=== PATIENT | female | born 1965 | race Caucasian/White ===

== ENCOUNTER 2018-07-18 12:00 | Emergency (ER) | payer OTHER ==
[~2018-07-18] VITALS: Ht 154.9 cm; Wt 93.3 kg
[2018-07-18 13:08] LABS: BASOPHILS # (AUTO) 0.05 x10^3/uL (0-0.1); BASOPHILS % (AUTO) 0 % (0-1); EOSINOPHILS # (AUTO) 0.34 x10^3/uL (0-0.4); EOSINOPHILS % (AUTO) 2 % (1-7); LYMPHOCYTES # (AUTO) 2.36 x10^3/uL (1-3.4); LYMPHOCYTES % (AUTO) 16 % (22-44); MD NO; MEAN CORPUSCULAR HEMOGLOBIN 29.4 pg (27.0-34.8); MEAN CORPUSCULAR VOLUME 86.4 fL (80-100); MEAN PLATELET VOLUME 8.2 fL (7.4-10.4); MONOCYTES # (AUTO) 0.82 x10^3/uL (0.2-0.8); MONOCYTES % (AUTO) 6 % (2-9); NEUTROPHILS # (AUTO) 10.95 x10^3/uL (1.8-6.8); NEUTROPHILS % (AUTO) 75 % (42-75); PLATELET COUNT 410 x10^3/uL (130-400); RED BLOOD COUNT 5.48 x10^6/uL (3.82-5.3); RED CELL DISTRIBUTION WIDTH 13.8 % (9.6-15.2)
[2018-07-18 13:15] LABS: ANION GAP 9 mmol/L (5-15); CALCIUM 10.5 mg/dL (8.5-10.1); CHLORIDE 99 mmol/L (98-107)
[2018-07-18 13:16] LABS: CREATININE 0.99 mg/dL (0.55-1.02)
[2018-07-18] MEDS ORDERED: METF500T17 PO (14:01)
[2018-07-18] MEDS ORDERED: [UNRECOGNIZED DRUG - OTHER] INJ (14:02)
[2018-07-18] MEDS ORDERED: ATOR10TA9 PO (14:03)
[2018-07-18] MEDS ORDERED: LOSA50TA2 PO (14:03)
[2018-07-18] MEDS ORDERED: CEFAZOLIN 1,000 MG IM ONE (15:00)
[2018-07-18] MEDS ORDERED: CEFAZOLIN 1,000 MG ONE (15:06)
[2018-07-18 15:30] VITALS: BP 162/93
== END 2018-07-18 15:31 | disposition home or self-care (01) ==
LOC: ED 12:25
DX: L03.211 Cellulitis of face (principal); I10 Essential (primary) hypertension; E11.9 Type 2 diabetes mellitus without complications; E78.00 Pure hypercholesterolemia, unspecified
CPT/HCPCS: 36415; 70486; 80048; 85025; 99284